=== PATIENT | female | born 1975 | race Caucasian/White ===

== ENCOUNTER 2017-11-11 08:26 | Emergency (ER) | payer SELFPAY ==
[~2017-11-11] VITALS: Ht 157.5 cm; Wt 60.9 kg
[~2017-11-11 08:26] MED LIST: ADVIL200 MG PO; BENADRYL50 MG PO; CIPRO500 MG PO; COMBIVENT RESPIM4 GM IH; ENDOCET 5-3251 EACH PO; EPIPEN ADU0.3 MG/0.3 IM; FLAGYL500 MG PO; IBUPROFEN800 MG PO; LEVAQUIN750 MG PO; NORCO 7.5/321 TABLET PO; PREDNISONE10 MG PO; PREDNISONE20 MG PO; REQUIP3 MG PO; ROBITUSSIN AC,T10 ML PO; ROBITUSSIN DM118 ML PO; VENLAFAXINE HCL75 MG PO
[2017-11-11] MEDS ORDERED: TYLENOL WITH C1 EACH PO (09:56)
[2017-11-11 10:13] VITALS: BP 149/104
== END 2017-11-11 10:13 | disposition home or self-care (01) ==
LOC: EME 08:26
PROC: 2W3CX1Z Immobilization of Right Lower Arm using Splint (ICD-10-PCS; principal; 2017-11-11)
DX: S52.614A Nondisplaced fracture of right ulna styloid process, initial encounter for closed fracture (principal); W22.09XA Striking against other stationary object, initial encounter; F17.200 Nicotine dependence, unspecified, uncomplicated; Z88.0 Allergy status to penicillin
CPT/HCPCS: 73110; 99281; 99283

== ENCOUNTER 2017-12-20 21:44 | Emergency (ER) | payer OTHER ==
[~2017-12-20] VITALS: Ht 157.5 cm; Wt 62.2 kg
[~2017-12-20 21:44] MED LIST changes: +TYLENOL WITH C1 EACH PO
[2017-12-20 23:13] LABS: HEMATOCRIT 36.6 % (36.0-46.0); HEMOGLOBIN 12.5 G/DL (11.9-15.5); MCHC 34.2 G/DL (30.0-36.0); MCV 99.5 FL (83-99); PLATELET COUNT 129 K/uL (156-360); RBC DIS.WIDTH-CV 13.6 % (11.8-14.6); RBC DIS.WIDTH-SD 50.3 % (39-53); RED BLOOD COUNT 3.68 M/uL (3.80-5.20); WHITE BLOOD COUNT 4.2 K/uL (4.1-10.2)
[2017-12-20 23:28] LABS: CHLORIDE 106 mEq/L (99-109); POTASSIUM 3.9 mEq/L (3.7-5.4); SODIUM 137 mEq/L (136-147)
[2017-12-20 23:30] LABS: GLUCOSE 100 mg/dL (70-99); TOTAL PROTEIN 6.3 g/dL (6.4-8.3)
[2017-12-20 23:32] LABS: TOTAL BILIRUBIN 0.2 mg/dL (0.0-1.0)
[2017-12-20 23:33] LABS: ALKALINE PHOSPHATASE 103 IU/L (3-129)
[2017-12-20 23:34] LABS: CREATININE 0.8 mg/dL (0.6-1.3); GFR ESTIMATE (CALCULATED) > 59 mL/min/
[2017-12-20 23:35] LABS: AST (GOT) 42 IU/L (2-34); UREA NITROGEN (BUN) 12 mg/dL (9-23)
[2017-12-20 23:36] LABS: ALT (GPT) 58 IU/L (3-49)
[2017-12-20 23:37] LABS: LIPASE 11 U/L (1.0-51.0)
[2017-12-21 00:35] LABS: APPEARANCE CLEAR ((CLEAR)); BILIRUBIN NEGATIVE; BLOOD NEGATIVE; COLOR YELLOW ((YELLOW)); GLUCOSE (STRIP) NEGATIVE; KETONES NEGATIVE; LEUKOCYTES NEGATIVE; NITRITE NEGATIVE; PROTEIN (STRIP) NEGATIVE; SPECIFIC GRAVITY 1.012 (1.000-1.030); UCUL ADDED? NO
[2017-12-21] MEDS ORDERED: ZITHROMAX Z-PA250 MG PO (00:42)
[2017-12-21 00:55] VITALS: BP 117/70
== END 2017-12-21 01:02 | disposition home or self-care (01) ==
LOC: EME 21:44
PROVIDERS: Emergency Medicine
DX: G89.18 Other acute postprocedural pain (principal); M25.532 Pain in left wrist; J20.9 Acute bronchitis, unspecified; R74.0 Nonspecific elevation of levels of transaminase and lactic acid dehydrogenase [LDH]; Z98.890 Other specified postprocedural states; F17.200 Nicotine dependence, unspecified, uncomplicated
CPT/HCPCS: 71045; 80053; 81003; 83690; 85027; 99281; 99284